=== PATIENT | female | born 1950 | race Hispanic/Latino ===

== ENCOUNTER → 2018-10-12 | Outpatient (CLI) | payer MEDICARE ==
[~2018-10-12] MED LIST: AEC81 PO; ATOR10 PO; B SUPPLEMENT PO; CANA300T PO; EXEN2VIA SQ; FLUT16H NASAL; GABA-529 PO; IRON150C5 PO; LEVO25TA4 PO; MAGN400T40 PO; MAGN500C15 PO; MECL12.585 PO; METF-446 PO; METO25 PO; NITR0.4T SL; PIOG15TA66 PO
== END | disposition home or self-care (01) ==
LOC: RAH 10:00
PROVIDERS: ATTEND Internal Medicine
DX: Z01.811 Encounter for preprocedural respiratory examination (principal); J44.9 Chronic obstructive pulmonary disease, unspecified; M85.88 Other specified disorders of bone density and structure, other site; Z95.1 Presence of aortocoronary bypass graft
CPT/HCPCS: 71046

== ENCOUNTER 2019-07-08 01:16 | Observation (INO) | payer MEDICARE ==
[~2019-07-08 01:16] MED LIST changes: +MECL-183 PO; -MECL12.585 PO
[2019-07-08 01:45] LABS: BASOPHILS % (AUTO) 0.7 % (0.0-5.0); EOSINOPHILS % (AUTO) 2.4 % (0.0-8.0); HEMATOCRIT 38.5 % (36-48); LYMPHOCYTES % (AUTO) 42.2 % (21.0-51.0); MEAN CORPUSCULAR HEMOGLOBIN 24.4 pg (27.0-33.0); MEAN CORPUSCULAR HGB CONC 30.1 g/dL (32.0-36.0); MEAN CORPUSCULAR VOLUME 80.9 fL (79-99); MONOCYTES % (AUTO) 9.4 % (3.0-13.0); NEUTROPHILS % (AUTO) 45.2 % (40.0-77.0); PLATELET COUNT (AUTO) 283 K/uL (130-400); RED BLOOD CELL COUNT(AUTO) 4.76 MIL/uL (4.00-5.50); RED CELL DISTRIBUTION WIDTH 17.5 % (11.0-15.5); WHITE BLOOD COUNT (AUTO) 7.2 K/uL (4.8-10.8)
[2019-07-08 01:53] LABS: CREATININE 0.8 mg/dL (0.5-1.5)
[2019-07-08 01:58] LABS: ALBUMIN 3.2 g/dL (3.5-5.0); BILIRUBIN,TOTAL 0.1 mg/dL (0.2-1.0); TOTAL PROTEIN, SERUM 6.2 g/dL (6.0-8.3)
[2019-07-08 02:35] LABS: APPEARANCE,URINE Clear (CLEAR); BILIRUBIN,URINE Negative (NEGATIVE); COLOR,URINE Yellow (YELLOW); GLUCOSE, URINE (UA) >=1000 mg/dL (NEGATIVE); KETONES,URINE Negative (NEGATIVE); LEUKOCYTE ESTERASE ,URINE Negative (NEGATIVE); NITRATE,URINE Negative (NEGATIVE); OCCULT BLOOD,URINE Negative (NEGATIVE); PROTEIN,URINE Negative (NEGATIVE); UROBILINOGEN,URINE 0.2 mg/dL (0.2-1.0)
[2019-07-08 02:48] LABS: BACTERIA,URINE Rare /HPF (None Seen); RBC,URINE 0-1 /HPF (0-1); SQUAMOUS EPITHELIAL CELL,UR 0-2 /HPF (0-2); WBC,URINE 0-1 /HPF (0-1)
[2019-07-08 02:49] LABS: MUCUS,URINE Rare LPF (None Seen)
[2019-07-08] MEDS ORDERED: ACETAMINOPHEN 325 MG TAB ONE (03:48)
[2019-07-08 03:53] LABS: PLATELET MORPHOLOGY PLT CLUMPS PRESENT
[2019-07-08] MEDS ORDERED: FAMOTIDINE/PF 20 MG/2 ML VIAL IV ONE (04:11)
[2019-07-08] MEDS ORDERED: ONDANSETRON HCL 4 MG/2 ML VIAL IV PRN (04:45)
[2019-07-08] MEDS ORDERED: DEXTROSE 50%-WATER 50 ML DISP.SYRIN IV PRN (05:00)
[2019-07-08] MEDS ORDERED: GLUCAGON 1MG KIT 1 MG ML IM PRN (05:00)
[2019-07-08 05:20] VITALS: BP 123/66
[2019-07-08] MEDS ORDERED: MONT10TA26 PO (05:42)
[2019-07-08] MEDS ORDERED: BENZ200C53 PO (05:53)
[2019-07-08] MEDS ORDERED: LEVO75 PO (05:53)
[2019-07-08] MEDS ORDERED: CELE400C10 PO (05:53)
[2019-07-08] MEDS ORDERED: TOPI25TA48 PO (05:53)
[2019-07-08] MEDS ORDERED: GABA-529 PO (05:53)
[2019-07-08] MEDS ORDERED: OMEP20CA12 PO (05:53)
[2019-07-08] MEDS ORDERED: DULO60CA64 PO (05:53)
[2019-07-08] MEDS ORDERED: FURO20TA4 PO (05:53)
[2019-07-08] MEDS ORDERED: LEVE500T19 PO (05:53)
[2019-07-08] MEDS: INSULIN HUMULIN R 100 UNIT/ML 3ML SQ SCH ×4 (06:00→20:42)
[2019-07-08 06:23] LABS: BASOPHILS % (AUTO) 0.6 % (0.0-5.0); EOSINOPHILS % (AUTO) 1.2 % (0.0-8.0); HEMATOCRIT 40.5 % (36-48); LYMPHOCYTES % (AUTO) 35.4 % (21.0-51.0); MEAN CORPUSCULAR HEMOGLOBIN 24.2 pg (27.0-33.0); MEAN CORPUSCULAR HGB CONC 29.9 g/dL (32.0-36.0); MEAN CORPUSCULAR VOLUME 80.8 fL (79-99); MONOCYTES % (AUTO) 7.1 % (3.0-13.0); NEUTROPHILS % (AUTO) 55.4 % (40.0-77.0); PLATELET COUNT (AUTO) 284 K/uL (130-400); RED BLOOD CELL COUNT(AUTO) 5.01 MIL/uL (4.00-5.50); RED CELL DISTRIBUTION WIDTH 17.7 % (11.0-15.5); WHITE BLOOD COUNT (AUTO) 6.8 K/uL (4.8-10.8)
[2019-07-08] MEDS: SODIUM CHLORIDE 0.9% 1000ML 1,000 ML IV SCH (06:39)
[2019-07-08 06:44] LABS: INR 0.95 (0.85-1.15); PARTIAL THROMBOPLASTIN TIME 24.7 SEC (26.3-35.5); PROTHROMBIN TIME 10.3 SEC (9.6-11.6)
[2019-07-08 06:58] LABS: ALANINE AMINOTRANSFERASE 27 U/L (12-78); ALBUMIN 3.1 g/dL (3.5-5.0); ASPARTATE AMINOTRANSFERASE 30 U/L (10-37); BILIRUBIN,TOTAL 0.1 mg/dL (0.2-1.0); CARBON DIOXIDE 30 mmol/L (21-32); CHLORIDE 107 mmol/L (101-111); CHOLESTEROL 128 mg/dL (<200); CREATINE KINASE, TOTAL 80 U/L (21-232); CREATININE 0.7 mg/dL (0.5-1.5); GLOMERULAR FILTR. RATE CALC 88 mL/min (>60); GLUCOSE,RANDOM 111 mg/dL (70-105); HDL CHOLESTEROL 49 mg/dL (35-85); LDL DIRECT 56 mg/dL (0-99); MYOGLOBIN 40 ng/mL (10-92); POTASSIUM 4.3 mmol/L (3.5-5.1); SODIUM SERUM 142 mmol/L (136-145); TOTAL PROTEIN, SERUM 6.6 g/dL (6.0-8.3); TRIGLYCERIDES 191 mg/dL (30-200); TROPONIN I < 0.04 ng/mL (0.00-0.06); UREA NITROGEN, BLOOD 9 mg/dL (7-18)
[2019-07-08 07:04] LABS: HEMOGLOBIN A1C 6.9 % (4.0-6.0)
[2019-07-08 07:30] VITALS: BP 106/51
[2019-07-08] MEDS: FAMOTIDINE/PF 20 MG/2 ML VIAL IV SCH ×2 (09:05→20:25)
[2019-07-08] MEDS: ASPIRIN 81MG TAB.CHEW PO SCH (09:06)
[2019-07-08] MEDS: ENOXAPARIN SODIUM 30 MG/0.3 ML SQ SCH (09:07)
--- NOTE | 2019-07-08 09:30 | NUR ---
DR. DE LA ROSA IN TO SE PT. ORDERS ENTERED.
--- NOTE | 2019-07-08 10:17 | NUR ---
INITIAL SW spoke with patient. She states she lives alone but goes to stay with sister, Dipti Law, [phone] when she needs extra help. No home services. Patient has assistant executive housekeeper which helps her around the house and with transportation. DME: BPM, glucometer (no insulin), cane, shower chair. Patient is able to complete ADL's independently but does not drive. PCP is Dr. Swapnil Ortega. Pharmacy is [facility] located in [place]. DCP is home. Addendum: 07/08/19 at 1019 by DARREL SORENSEN SS Amended: Links added.
--- NOTE | 2019-07-08 10:40 | NUR ---
DYSPHAGIA EVAL COMPLETED. NO S/S OF ASPIRATION. RECOMMEND REGULAR, THIN LIQUIDS, WITH PILLS WHOLE WITH LIQUIDS. QUALITY CONTROL TECH RAW MATERIALS COORDINATED WITH NURSE SINGER. Addendum: 07/08/[address] [facility]ARA PIRES Amended: Links added.
[2019-07-08 11:00] VITALS: BP 112/68
--- NOTE | 2019-07-08 15:08 | NUR ---
TO RAD DEPT NOW FOR BRAIN MRI .
[2019-07-08 16:00] VITALS: BP 113/69
[2019-07-08 20:00] VITALS: BP 121/64
[2019-07-08] MEDS: TOPIRAMATE 25 MG TABLET PO SCH (20:25)
[2019-07-08] MEDS: LEVETIRACETAM 500 MG TABLET PO SCH (20:25)
[2019-07-08] MEDS ORDERED: GABAPENTIN 300 MG CAPSULE PO SCH (21:00)
[2019-07-09] VITALS (7 sets, daily range): BP systolic 107–123; BP diastolic 55–75
[2019-07-09] MEDS: SODIUM CHLORIDE 0.9% 1000ML 1,000 ML IV SCH (04:01)
[2019-07-09] MEDS: INSULIN HUMULIN R 100 UNIT/ML 3ML SQ SCH ×2 (05:49→11:39)
[2019-07-09] MEDS ORDERED: GABAPENTIN 100 MG CAPSULE PO SCH (09:00)
[2019-07-09] MEDS: ASPIRIN 81MG TAB.CHEW PO SCH (09:11)
[2019-07-09] MEDS: ENOXAPARIN SODIUM 30 MG/0.3 ML SQ SCH (09:12)
[2019-07-09] MEDS: FAMOTIDINE/PF 20 MG/2 ML VIAL IV SCH (09:12)
[2019-07-09] MEDS: LEVETIRACETAM 500 MG TABLET PO SCH (09:12)
[2019-07-09] MEDS: TOPIRAMATE 25 MG TABLET PO SCH (09:12)
--- NOTE | 2019-07-09 09:30 | NUR ---
MD ROUNDS DR CHAPPELL VISITED WITH PATIENT. NO ORDERS RECEIVED. PATIENT STATED THAT DR CHAPPELL MENTIONED ABOUT CHANGING HER MEDICATIONS AND F/U WITH DR MIRANDA.
--- NOTE | 2019-07-09 11:42 | NUR ---
ROUNDS DR DE LA ROSA VISITED WITH PATIENT. FROM HIS STAND POINT PATIENT MAY BE D/C AND CONTINUE THE SAME SEIZURE MEDICATIONS, FOLLOW UP WITH HIM AT HIS CLINIC.
[2019-07-09] MEDS ORDERED: COMP1EAC MC (16:10)
[2019-07-09] MEDS ORDERED: FLUD0.1T2 PO (16:10)
[2019-07-09] MEDS ORDERED: FLUDROCORTISONE ACETATE 0.1 MG TABLET PO SCH (16:15)
== END 2019-07-09 19:25 | disposition home or self-care (01) ==
LOC: EDH 01:16 → EDHIP 04:45 → INTOOBSV 04:45 → 3DH 05:24
PROVIDERS: ADMIT Internal Medicine; ATTEND Internal Medicine
DX: R55 Syncope and collapse (principal); R41.82 Altered mental status, unspecified; E11.9 Type 2 diabetes mellitus without complications; E78.5 Hyperlipidemia, unspecified; I10 Essential (primary) hypertension; Z86.73 Personal history of transient ischemic attack (TIA), and cerebral infarction without residual deficits
CPT/HCPCS: 36415; 70450; 70544; 70551; 71045; 74177; 80053 ×2; 80061; 81001; 82550 ×2; 82948 ×7; 83036; 83690; 83874; 84484 ×2; 85025 ×2; 85610; 85730; 92610; 93005; 96361 ×2; 96372; 96374; 96375; 96376 ×2; 97161; 99285; G0378 ×21; G8978; G8979; G8980; G8981; G8982; G8983; J1650 ×2; J3490 ×4

== ENCOUNTER → 2019-07-28 | Outpatient (CLI) | payer MEDICARE ==
[~2019-07-28] MED LIST changes: -B SUPPLEMENT PO; +BENZ200C53 PO; +CELE400C10 PO; +COMP1EAC MC; +DULO60CA64 PO; -EXEN2VIA SQ; +FLUD0.1T2 PO; -FLUT16H NASAL; +FURO20TA4 PO; -IRON150C5 PO; +LEVE500T19 PO; -LEVO25TA4 PO; +LEVO75 PO; -MAGN400T40 PO; -METO25 PO; +MONT10TA26 PO; +OMEP20CA12 PO; +TOPI25TA48 PO
== END | disposition home or self-care (01) ==
LOC: RAH 08:26
PROVIDERS: ATTEND Internal Medicine Gastroenterology
DX: K76.0 Fatty (change of) liver, not elsewhere classified (principal); Z90.49 Acquired absence of other specified parts of digestive tract
CPT/HCPCS: 76700

== ENCOUNTER → 2020-02-21 | Outpatient (CLI) | payer MEDICARE | END | disposition home or self-care (01) | LOC: RAH 09:37 | PROVIDERS: ATTEND Internal Medicine | DX: K21.9 Gastro-esophageal reflux disease without esophagitis (principal); Z90.49 Acquired absence of other specified parts of digestive tract | CPT/HCPCS: 74240 ==

== ENCOUNTER → 2020-09-12 | Outpatient (CLI) | payer MEDICARE ==
[~2020-09-12] MED LIST changes: +IOHEXOL-350 75 ML VIAL IV ONE; -MECL-183 PO; +MECL-226 PO; -MONT10TA26 PO; +MONT10TA32 PO
== END | disposition home or self-care (01) ==
LOC: RAH 09:40
PROVIDERS: ATTEND Internal Medicine
DX: N85.8 Other specified noninflammatory disorders of uterus (principal); K76.0 Fatty (change of) liver, not elsewhere classified; D25.9 Leiomyoma of uterus, unspecified; K59.00 Constipation, unspecified; K57.92 Diverticulitis of intestine, part unspecified, without perforation or abscess without bleeding; K44.9 Diaphragmatic hernia without obstruction or gangrene; R56.9 Unspecified convulsions; H26.9 Unspecified cataract; Z90.49 Acquired absence of other specified parts of digestive tract
CPT/HCPCS: 74178; Q9967

== ENCOUNTER 2020-10-17 00:59 | Observation (INO) | payer MEDICARE ==
[~2020-10-17] VITALS: Ht 172.7 cm; Wt 80.4 kg
[2020-10-17] VITALS (9 sets, daily range): BP systolic 93–133; BP diastolic 43–61
[~2020-10-17 00:59] MED LIST changes: -IOHEXOL-350 75 ML VIAL IV ONE
[2020-10-17] MEDS ORDERED: MORPHINE 4 MG SYG ONE (01:56)
[2020-10-17] MEDS ORDERED: ONDANSETRON 4MG INJ ONE (01:56)
[2020-10-17] MEDS ORDERED: 0.9%NACL 1000ML 1,000 ML IV ONE ×2 (01:57→02:00)
[2020-10-17] MEDS ORDERED: MORPHINE 4 MG SYG IVP ONE (02:00)
[2020-10-17] MEDS ORDERED: ONDANSETRON 4MG INJ IVP ONE (02:00)
[2020-10-17 02:14] LABS: BASOPHILS % (AUTO) 0.5 % (0.0-5.0); EOSINOPHILS % (AUTO) 0.5 % (0.0-8.0); HEMATOCRIT 39.3 % (36-48); LYMPHOCYTES % (AUTO) 14.4 % (21.0-51.0); MEAN CORPUSCULAR HEMOGLOBIN 23.5 pg (27.0-33.0); MEAN CORPUSCULAR HGB CONC 29.8 g/dL (32.0-36.0); MEAN CORPUSCULAR VOLUME 79.1 fL (79-99); MONOCYTES % (AUTO) 4.3 % (3.0-13.0); NEUTROPHILS % (AUTO) 80.1 % (40.0-77.0); PLATELET COUNT (AUTO) 346 K/uL (130-400); RED BLOOD CELL COUNT(AUTO) 4.97 MIL/uL (4.00-5.50); RED CELL DISTRIBUTION WIDTH 19.4 % (11.0-15.5); WHITE BLOOD COUNT (AUTO) 8.6 K/uL (4.8-10.8)
[2020-10-17] MEDS ORDERED: IOHEXOL-350 75 ML VIAL IV ONE (02:24)
[2020-10-17 02:30] LABS: CREATININE 0.8 mg/dL (0.5-1.5); POTASSIUM 4.4 mmol/L (3.5-5.1)
[2020-10-17 02:37] LABS: ALBUMIN 3.6 g/dL (3.5-5.0); BILIRUBIN,TOTAL 0.2 mg/dL (0.2-1.0); TOTAL PROTEIN, SERUM 7.2 g/dL (6.0-8.3)
[2020-10-17 03:06] LABS: APPEARANCE,URINE Clear (CLEAR); BILIRUBIN,URINE Negative (NEGATIVE); COLOR,URINE Yellow (YELLOW); GLUCOSE, URINE (UA) >=1000 mg/dL (NEGATIVE); KETONES,URINE Negative (NEGATIVE); LEUKOCYTE ESTERASE ,URINE Negative (NEGATIVE); NITRATE,URINE Negative (NEGATIVE); OCCULT BLOOD,URINE Negative (NEGATIVE); PROTEIN,URINE Negative (NEGATIVE); UROBILINOGEN,URINE 0.2 mg/dL (0.2-1.0)
[2020-10-17 03:18] LABS: BACTERIA,URINE None Seen /HPF (None Seen); RBC,URINE None Seen /HPF (0-1); SQUAMOUS EPITHELIAL CELL,UR Rare /HPF (0-2); WBC,URINE None Seen /HPF (0-1); YEAST,URINE BUDDING None Seen /HPF (None Seen)
[2020-10-17] MEDS ORDERED: MORPHINE 2 MG SYG IV PRN (05:30)
[2020-10-17] MEDS ORDERED: MORPHINE 4 MG SYG IV PRN (05:30)
[2020-10-17] MEDS ORDERED: ONDANSETRON 4MG INJ IV PRN (05:30)
[2020-10-17] MEDS ORDERED: DEXL60CA3 PO (05:42)
[2020-10-17] MEDS ORDERED: SEMA1PEN3 SQ (05:55)
[2020-10-17] MEDS ORDERED: FLUT16H NASAL (05:55)
[2020-10-17] MEDS ORDERED: L.AC1CAP6 PO (05:55)
[2020-10-17] MEDS ORDERED: TURM500C9 PO (05:55)
[2020-10-17] MEDS ORDERED: ALBU0.63 IH (05:55)
[2020-10-17] MEDS ORDERED: PRAM0.122 PO (05:55)
[2020-10-17] MEDS ORDERED: EREN70AU2 SQ (05:55)
[2020-10-17] MEDS ORDERED: DIFL5DRO OP (05:58)
[2020-10-17] MEDS: LEVOFLOXACIN 500 MG/D5W 100 ML 100 ML IV SCH (06:00)
[2020-10-17] MEDS: METRONIDAZOLE 500MG/100ML BAG 100 ML IVPB SCH ×3 (06:00→21:33)
[2020-10-17] MEDS ORDERED: METRONIDAZOLE 500MG/100ML BAG 100 ML ONE (06:09)
[2020-10-17] MEDS ORDERED: LEVOFLOXACIN 500 MG/D5W 100 ML 100 ML ONE (06:09)
[2020-10-17] MEDS ORDERED: METFORMIN HCL 500 MG TABLET PO SCH (08:00)
[2020-10-17] MEDS ORDERED: PIOGLITAZONE 15MG TAB PO SCH (09:00)
[2020-10-17] MEDS: DIFLUPREDNATE OP SCH ×2 (09:00→21:00)
[2020-10-17] MEDS: **HM**(L.acidoph & Paracasei,B.lactis (Probiotic) 1 EACH PO SCH ×3 (09:00→21:00)
[2020-10-17] MEDS: DULOXETINE HCL 30 MG CAP PO SCH (10:28)
[2020-10-17] MEDS: FAMOTIDINE 20MG VIAL IV SCH ×2 (10:48→21:11)
[2020-10-17] MEDS: ENOXAPARIN SODIUM 40 MG/0.4 ML SYRINGE SQ SCH (10:49)
[2020-10-17] MEDS: PANTOPRAZOLE 40 MG TAB DR PO SCH (10:50)
[2020-10-17] MEDS: ASPIRIN 81 MG EC TAB PO SCH (10:50)
[2020-10-17] MEDS: MAGNESIUM OXIDE 400 MG TABLET PO SCH ×2 (10:50→21:11)
[2020-10-17] MEDS: LEVETIRACETAM 500 MG TABLET PO SCH ×2 (10:51→21:11)
[2020-10-17] MEDS: 0.9%NACL 1000ML 1,000 ML IV SCH ×2 (11:18→15:30)
[2020-10-17] MEDS ORDERED: ACETAMINOPHEN 325 MG TAB PO PRN ×2 (17:00)
[2020-10-17] MEDS: ACETAMINOPHEN 325 MG TAB PO PRN ×2 (17:23→22:35)
[2020-10-17] MEDS: ATORVASTATIN 40 MG TABLET PO SCH (21:11)
[2020-10-17] MEDS: PRAMIPEXOLE DI-HCL 0.25 MG TABLET PO SCH (21:15)
[2020-10-18] VITALS (7 sets, daily range): BP systolic 107–127; BP diastolic 44–71
[2020-10-18] MEDS: 0.9%NACL 1000ML 1,000 ML IV SCH ×3 (00:09→20:45)
[2020-10-18 05:40] LABS: BASOPHILS % (AUTO) 0.2 % (0.0-5.0); EOSINOPHILS % (AUTO) 0.3 % (0.0-8.0); HEMATOCRIT 34.8 % (36-48); LYMPHOCYTES % (AUTO) 23.6 % (21.0-51.0); MEAN CORPUSCULAR HEMOGLOBIN 23.2 pg (27.0-33.0); MEAN CORPUSCULAR HGB CONC 29.9 g/dL (32.0-36.0); MEAN CORPUSCULAR VOLUME 77.7 fL (79-99); MONOCYTES % (AUTO) 7.6 % (3.0-13.0); NEUTROPHILS % (AUTO) 67.9 % (40.0-77.0); PLATELET COUNT (AUTO) 293 K/uL (130-400); RED BLOOD CELL COUNT(AUTO) 4.48 MIL/uL (4.00-5.50); WHITE BLOOD COUNT (AUTO) 9.6 K/uL (4.8-10.8)
[2020-10-18] MEDS: METRONIDAZOLE 500MG/100ML BAG 100 ML IVPB SCH ×3 (05:41→20:57)
[2020-10-18 05:53] LABS: CREATININE 0.7 mg/dL (0.5-1.5); POTASSIUM 3.6 mmol/L (3.5-5.1)
[2020-10-18] MEDS: LEVOFLOXACIN 500 MG/D5W 100 ML 100 ML IV SCH (06:29)
[2020-10-18] MEDS ORDERED: INVOK100TB PO (08:56)
[2020-10-18] MEDS ORDERED: METF-446 PO (08:56)
[2020-10-18] MEDS ORDERED: LEVE500T19 PO (08:56)
[2020-10-18] MEDS ORDERED: FLUD0.1T2 PO ×2 (08:56)
[2020-10-18] MEDS ORDERED: DULO60CA64 PO (08:56)
[2020-10-18] MEDS ORDERED: CALC-1290 PO (08:56)
[2020-10-18] MEDS ORDERED: ATOR40TA71 PO (08:56)
[2020-10-18] MEDS ORDERED: EREN70AU2 SQ (08:56)
[2020-10-18] MEDS ORDERED: ASPI-1197 PO (08:56)
[2020-10-18] MEDS ORDERED: PIOG30TA70 PO (08:56)
[2020-10-18] MEDS: DIFLUPREDNATE OP SCH ×2 (09:00→20:09)
[2020-10-18] MEDS: **HM**(L.acidoph & Paracasei,B.lactis (Probiotic) 1 EACH PO SCH ×3 (09:00→20:09)
[2020-10-18] MEDS: FAMOTIDINE 20MG VIAL IV SCH ×2 (09:01→20:08)
[2020-10-18] MEDS: MAGNESIUM OXIDE 400 MG TABLET PO SCH ×2 (09:01→20:08)
[2020-10-18] MEDS: ASPIRIN 81 MG EC TAB PO SCH (09:02)
[2020-10-18] MEDS: PANTOPRAZOLE 40 MG TAB DR PO SCH (09:02)
[2020-10-18] MEDS: DULOXETINE HCL 30 MG CAP PO SCH (09:03)
[2020-10-18] MEDS: LEVETIRACETAM 500 MG TABLET PO SCH ×2 (09:03→20:08)
[2020-10-18] MEDS: ACETAMINOPHEN 325 MG TAB PO PRN (09:03)
[2020-10-18] MEDS: ENOXAPARIN SODIUM 40 MG/0.4 ML SYRINGE SQ SCH (09:04)
[2020-10-18 09:21] LABS: CREATINE KINASE, TOTAL 46 U/L (21-232); MYOGLOBIN 44 ng/mL (10-92); TROPONIN I < 0.04 ng/mL (0.00-0.06)
[2020-10-18 13:03] LABS: CREATINE KINASE, TOTAL 53 U/L (21-232); MYOGLOBIN 42 ng/mL (10-92); TROPONIN I < 0.04 ng/mL (0.00-0.06)
[2020-10-18] MEDS ORDERED: NITROGLYCERIN 0.4 MG SL TAB SL ONE (14:11)
[2020-10-18 14:51] LABS: CREATINE KINASE, TOTAL 51 U/L (21-232); MYOGLOBIN 44 ng/mL (10-92); TROPONIN I < 0.04 ng/mL (0.00-0.06)
[2020-10-18] MEDS ORDERED: IOHEXOL 350 MG/ML 100ML INFUS..BTL IV ONE (19:26)
[2020-10-18] MEDS: PRAMIPEXOLE DI-HCL 0.25 MG TABLET PO SCH (20:08)
[2020-10-18] MEDS: ATORVASTATIN 40 MG TABLET PO SCH (20:08)
[2020-10-19 04:00] VITALS: BP 107/54
[2020-10-19 04:17] LABS: BASOPHILS % (AUTO) 0.7 % (0.0-5.0); EOSINOPHILS % (AUTO) 1.2 % (0.0-8.0); HEMATOCRIT 35.5 % (36-48); LYMPHOCYTES % (AUTO) 46.2 % (21.0-51.0); MEAN CORPUSCULAR HEMOGLOBIN 23.3 pg (27.0-33.0); MEAN CORPUSCULAR HGB CONC 29.9 g/dL (32.0-36.0); MEAN CORPUSCULAR VOLUME 78.2 fL (79-99); MONOCYTES % (AUTO) 11.1 % (3.0-13.0); NEUTROPHILS % (AUTO) 40.5 % (40.0-77.0); PLATELET COUNT (AUTO) 288 K/uL (130-400); RED BLOOD CELL COUNT(AUTO) 4.54 MIL/uL (4.00-5.50); RED CELL DISTRIBUTION WIDTH 19.1 % (11.0-15.5)
[2020-10-19] MEDS: LEVOFLOXACIN 500 MG/D5W 100 ML 100 ML IV SCH (04:40)
[2020-10-19 04:49] LABS: HEMOGLOBIN A1C 6.4 % (4.0-6.0)
[2020-10-19 05:35] LABS: ERYTHROCYTE SEDIMENTATION RATE 2 MM/HR (0-30)
[2020-10-19] MEDS: METRONIDAZOLE 500MG/100ML BAG 100 ML IVPB SCH (05:43)
[2020-10-19 07:43] VITALS: BP 103/65
[2020-10-19] MEDS: DULOXETINE HCL 30 MG CAP PO SCH (08:53)
[2020-10-19] MEDS: LEVETIRACETAM 500 MG TABLET PO SCH (08:53)
[2020-10-19] MEDS: ASPIRIN 81 MG EC TAB PO SCH (08:53)
[2020-10-19] MEDS: PANTOPRAZOLE 40 MG TAB DR PO SCH (08:53)
[2020-10-19] MEDS: MAGNESIUM OXIDE 400 MG TABLET PO SCH (08:53)
[2020-10-19] MEDS: ENOXAPARIN SODIUM 40 MG/0.4 ML SYRINGE SQ SCH (08:54)
[2020-10-19] MEDS: FAMOTIDINE 20MG VIAL IV SCH (08:54)
[2020-10-19] MEDS ORDERED: METRONIDAZOLE 500 MG TABLET PO SCH ×2 (09:00)
[2020-10-19] MEDS ORDERED: LEVOFLOXACIN 500 MG TABLET PO SCH (09:00)
[2020-10-19] MEDS: **HM**(L.acidoph & Paracasei,B.lactis (Probiotic) 1 EACH PO SCH ×2 (09:03→14:12)
[2020-10-19] MEDS: DIFLUPREDNATE OP SCH (09:04)
[2020-10-19] MEDS ORDERED: EMPA10TA PO (11:14)
[2020-10-19 11:30] VITALS: BP 115/74
== END 2020-10-19 15:05 | disposition home or self-care (01) ==
LOC: EDH 00:59 → EDHIP 05:30 → 3BH 08:43
PROVIDERS: ADMIT Internal Medicine; ATTEND Internal Medicine
DX: K52.9 Noninfective gastroenteritis and colitis, unspecified (principal); G40.909 Epilepsy, unspecified, not intractable, without status epilepticus; I25.10 Atherosclerotic heart disease of native coronary artery without angina pectoris; I10 Essential (primary) hypertension; E11.9 Type 2 diabetes mellitus without complications; E78.5 Hyperlipidemia, unspecified; E78.00 Pure hypercholesterolemia, unspecified; Z86.73 Personal history of transient ischemic attack (TIA), and cerebral infarction without residual deficits; Z90.49 Acquired absence of other specified parts of digestive tract; Z95.1 Presence of aortocoronary bypass graft; Z79.899 Other long term (current) drug therapy; Z98.890 Other specified postprocedural states; Z79.82 Long term (current) use of aspirin; Z79.84 Long term (current) use of oral hypoglycemic drugs
CPT/HCPCS: 36415 ×3; 74174; 74177; 80048; 80053; 81001; 82150; 82550 ×3; 82948 ×9; 83036; 83605; 83690; 83874 ×3; 84145; 84484 ×3; 85025 ×3; 85651 ×2; 86140 ×2; 87040 ×2; 93005 ×3; 96361 ×4; 96365; 96366 ×3; 96367; 96372 ×3; 96375 ×2; 96376 ×3; 99285; G0378 ×56; J1650 ×3; J1956 ×3; J2270; J2405; J3490 ×12; J7030 ×3; Q9967 ×2

== ENCOUNTER → 2021-07-17 | Outpatient (CLI) | payer OTHER, MEDICARE ==
[~2021-07-17] MED LIST changes: -AEC81 PO; +ALBU0.63 IH; +ASPI-1197 PO; -ATOR10 PO; +ATOR40TA71 PO; -BENZ200C53 PO; +CALC-1290 PO; -CANA300T PO; -CELE400C10 PO; -COMP1EAC MC; +DEXL60CA3 PO; +DIFL5DRO OP; +EMPA10TA PO; +EREN70AU2 SQ; +FLUT16H NASAL; -FURO20TA4 PO; -GABA-529 PO; -LEVO75 PO; -MAGN500C15 PO; -MECL-226 PO; -METF-446 PO; -MONT10TA32 PO; -NITR0.4T SL; -OMEP20CA12 PO; -PIOG15TA66 PO; +PRAM0.122 PO; +REGADENOSON 0.4 MG/5 ML PF SYG IVP SCH; +SEMA1PEN3 SQ; -TOPI25TA48 PO; +TURM500C9 PO
== END | disposition home or self-care (01) ==
LOC: SHCH 08:06
PROVIDERS: ATTEND Internal Medicine Cardiovascular Disease
DX: R07.89 Other chest pain (principal); R06.02 Shortness of breath; Z95.1 Presence of aortocoronary bypass graft
CPT/HCPCS: 78452; 93017; 96374; A9500 ×2; J2785

== ENCOUNTER → 2021-12-25 | Outpatient (CLI) | payer OTHER, MEDICARE ==
[~2021-12-25] MED LIST changes: -REGADENOSON 0.4 MG/5 ML PF SYG IVP SCH
== END | disposition home or self-care (01) ==
LOC: RAH 07:10
PROVIDERS: ATTEND Internal Medicine
DX: R63.4 Abnormal weight loss (principal)
CPT/HCPCS: 78264; A9541

== ENCOUNTER → 2022-08-15 | Outpatient (CLI) | payer OTHER, MEDICARE | END | disposition home or self-care (01) | LOC: RAH 13:02 | PROVIDERS: ATTEND Clinical Nurse Specialist Family Health | DX: M47.812 Spondylosis without myelopathy or radiculopathy, cervical region (principal); M48.02 Spinal stenosis, cervical region | CPT/HCPCS: 72040 ==

== ENCOUNTER → 2023-03-21 | Outpatient (CLI) | payer OTHER, MEDICARE ==
[~2023-03-21] MED LIST changes: +REGADENOSON 0.4 MG/5 ML PF SYG IVP ONE
== END | disposition home or self-care (01) ==
LOC: SHCH 07:32
PROVIDERS: ATTEND Internal Medicine Cardiovascular Disease
DX: R07.9 Chest pain, unspecified (principal)
CPT/HCPCS: 78452; 96374; 93017; J2785; A9500 ×2

== ENCOUNTER → 2023-03-26 | Outpatient (CLI) | payer OTHER, MEDICARE ==
[~2023-03-26] MED LIST changes: -REGADENOSON 0.4 MG/5 ML PF SYG IVP ONE
== END | disposition home or self-care (01) ==
LOC: RAH 16:15
PROVIDERS: ATTEND Psychiatry & Neurology Neurology
DX: M19.011 Primary osteoarthritis, right shoulder (principal); M25.511 Pain in right shoulder; W19.XXXA Unspecified fall, initial encounter; Y93.89 Activity, other specified; Y92.89 Other specified places as the place of occurrence of the external cause; Y99.8 Other external cause status
CPT/HCPCS: 73030

== ENCOUNTER → 2023-04-04 | Outpatient (CLI) | payer OTHER, MEDICARE ==
[2023-04-04 13:09] LABS: BASOPHILS # (AUTO) 0.03 K/uL (0.00-0.20); BASOPHILS % (AUTO) 0.5 % (0.0-5.0); EOSINOPHILS # (AUTO) 0.05 K/uL (0.00-0.70); EOSINOPHILS % (AUTO) 0.9 % (0.0-8.0); HEMATOCRIT 38.7 % (36-48); IMMATURE GRANULOCYTE ABSOLUTE 0.02 K/uL (0-1); LYMPHOCYTES # (AUTO) 2.1 K/uL (1.0-4.8); LYMPHOCYTES % (AUTO) 35.6 % (21.0-51.0); MEAN CORPUSCULAR HEMOGLOBIN 21.4 pg (27.0-33.0); MEAN CORPUSCULAR HGB CONC 29.2 g/dL (32.0-36.0); MEAN CORPUSCULAR VOLUME 73.4 fL (79-99); MONOCYTES # (AUTO) 0.5 K/uL (0.1-1.0); MONOCYTES % (AUTO) 7.7 % (3.0-13.0); NEUTROPHILS # (AUTO) 3.2 K/uL (1.8-7.7); PLATELET COUNT (AUTO) 333 K/uL (130-400); RED BLOOD CELL COUNT(AUTO) 5.27 MIL/uL (4.00-5.50); RED CELL DISTRIBUTION WIDTH 20.8 % (11.0-15.5); WHITE BLOOD COUNT (AUTO) 5.8 K/uL (4.8-10.8)
[2023-04-04 13:15] LABS: CREATININE 0.7 mg/dL (0.5-1.5); POTASSIUM 3.8 mmol/L (3.5-5.1)
[2023-04-04 13:18] LABS: INR 0.97 (0.85-1.15); PROTHROMBIN TIME 11.3 SEC (9.6-11.6)
[2023-04-04 13:19] LABS: PARTIAL THROMBOPLASTIN TIME 26.9 SEC (26.3-35.5)
[2023-04-04 13:54] LABS: B-TYPE NATRIURETIC PEPTIDE 13 pg/mL (0-100)
[2023-04-04 14:39] LABS: ADD UA MICROSCOPIC YES; APPEARANCE,URINE CLEAR (CLEAR); BILIRUBIN,URINE NEGATIVE (NEGATIVE); COLOR,URINE LIGHT-YELLOW (YELLOW); GLUCOSE, URINE (UA) >=1000 mg/dL (NEGATIVE); KETONES,URINE NEGATIVE (NEGATIVE); LEUKOCYTE ESTERASE ,URINE NEGATIVE Leu/uL (NEGATIVE); NITRATE,URINE NEGATIVE (NEGATIVE); PROTEIN,URINE NEGATIVE (NEGATIVE); UROBILINOGEN,URINE 0.2 mg/dL (0.2-1.0)
[2023-04-04 14:41] LABS: BACTERIA,URINE RARE /HPF (None Seen); MUCUS,URINE RARE LPF (None Seen); SQUAMOUS EPITHELIAL CELL,UR RARE /HPF (0-2)
== END | disposition home or self-care (01) ==
LOC: RAH 11:57
PROVIDERS: ATTEND Internal Medicine
DX: Z01.818 Encounter for other preprocedural examination (principal); I25.118 Atherosclerotic heart disease of native coronary artery with other forms of angina pectoris; I25.119 Atherosclerotic heart disease of native coronary artery with unspecified angina pectoris; Z86.2 Personal history of diseases of the blood and blood-forming organs and certain disorders involving the immune mechanism; Z79.899 Other long term (current) drug therapy
CPT/HCPCS: 36415; 71046; 80048; 81001; 83880; 85025; 85610; 85730; 87088

== ENCOUNTER 2023-06-02 06:58 | Day surgery (SDC) | payer OTHER, MEDICARE ==
[2023-05-30 08:45] LABS: BASOPHILS # (AUTO) 0.04 K/uL (0.00-0.20); BASOPHILS % (AUTO) 0.7 % (0.0-5.0); EOSINOPHILS # (AUTO) 0.11 K/uL (0.00-0.70); HEMATOCRIT 35.3 % (36-48); IMMATURE GRANULOCYTE ABSOLUTE 0.01 K/uL (0-1); LYMPHOCYTES # (AUTO) 2.3 K/uL (1.0-4.8); LYMPHOCYTES % (AUTO) 41.3 % (21.0-51.0); MEAN CORPUSCULAR HEMOGLOBIN 20.8 pg (27.0-33.0); MEAN CORPUSCULAR HGB CONC 29.5 g/dL (32.0-36.0); MEAN CORPUSCULAR VOLUME 70.5 fL (79-99); MONOCYTES # (AUTO) 0.5 K/uL (0.1-1.0); MONOCYTES % (AUTO) 9.3 % (3.0-13.0); NEUTROPHILS # (AUTO) 2.6 K/uL (1.8-7.7); NEUTROPHILS % (AUTO) 46.5 % (40.0-77.0); PLATELET COUNT (AUTO) 377 K/uL (130-400); RED BLOOD CELL COUNT(AUTO) 5.01 MIL/uL (4.00-5.50); RED CELL DISTRIBUTION WIDTH 22.4 % (11.0-15.5); WHITE BLOOD COUNT (AUTO) 5.5 K/uL (4.8-10.8)
[2023-05-30 08:51] LABS: CREATININE 0.7 mg/dL (0.5-1.5); POTASSIUM 3.9 mmol/L (3.5-5.1)
[2023-05-30 08:54] LABS: INR 0.94 (0.85-1.15)
[2023-05-30 08:55] LABS: PARTIAL THROMBOPLASTIN TIME 26.1 SEC (26.3-35.5)
[2023-05-30 09:22] VITALS: BP 124/61; PULSE 72; RESP 17
[~2023-06-02] VITALS: Ht 170.2 cm; Wt 68.2 kg
[2023-06-02] VITALS (9 sets, daily range): BP systolic 101–133; BP diastolic 52–67; PULSE 61–72; RESP 14–18
[~2023-06-02 06:58] MED LIST changes: -ALBU0.63 IH; +ALBUHFA IH; +ATOR-2 PO; +ATOR40TA69 PO; -ATOR40TA71 PO; +BIOT10005 PO; +CAL PO; -CALC-1290 PO; +DICL100G60 TP; -DIFL5DRO OP; -DULO60CA64 PO; -EMPA10TA PO; -EREN70AU2 SQ; +ERGO500093 PO; +HYOS-27 SL; +INVOK100TB PO; +LEVO75TA4 PO; +LINA145C PO; +MAG PO; +MELA1TAB16 PO; +METF-527 PO; +MIDO5TAB4 PO; +MONT-39 PO; +PIOG30TA10 PO; +POT PO; +PROP10TA10 PO; +RIME75TA SL; -SEMA1PEN3 SQ; +SEMA2PEN SQ; +TOPI25TA48 PO; -TURM500C9 PO
[2023-06-02] MEDS ORDERED: LIDOCAINE HCL 400MG/20ML VIAL ONE (08:34)
[2023-06-02] MEDS ORDERED: MEPERIDINE-PF 25 MG/ML SYG ONE ×2 (08:35→09:10)
[2023-06-02] MEDS ORDERED: MIDAZOLAM HCL 1 MG/ML 2ML VIAL ONE ×2 (08:35→09:10)
[2023-06-02] MEDS: 0.9%NACL 1000ML 1,000 ML IV ONE (11:04)
== END 2023-06-02 13:20 | disposition home or self-care (01) ==
LOC: DAH 06:58
PROVIDERS: ATTEND Internal Medicine Cardiovascular Disease
DX: R55 Syncope and collapse (principal); I25.10 Atherosclerotic heart disease of native coronary artery without angina pectoris; E78.5 Hyperlipidemia, unspecified; E03.9 Hypothyroidism, unspecified; E11.319 Type 2 diabetes mellitus with unspecified diabetic retinopathy without macular edema; E66.9 Obesity, unspecified; Z79.01 Long term (current) use of anticoagulants; Z79.82 Long term (current) use of aspirin; Z79.890 Hormone replacement therapy; Z79.899 Other long term (current) drug therapy; Z98.890 Other specified postprocedural states; Z68.23 Body mass index [BMI] 23.0-23.9, adult
CPT/HCPCS: 80048; 85025; 85610; 85730; 36415; 93005; 93620; 82948 ×2; C1894 ×2; C1730 ×2; J3490; J7030; J2250 ×2; J2175 ×2; J1644; A4215; A4222; A4221; A4663; A4216; A4606; A4223 ×3; 99156; 99157

== ENCOUNTER → 2023-10-01 | Outpatient (CLI) | payer OTHER, MEDICARE ==
[2023-10-01 12:42] LABS: CREATININE 0.6 mg/dL (0.5-1.0); POTASSIUM 3.9 mmol/L (3.5-5.1)
== END | disposition home or self-care (01) ==
LOC: LAB 11:09
PROVIDERS: ATTEND Internal Medicine Cardiovascular Disease
DX: I95.1 Orthostatic hypotension (principal)
CPT/HCPCS: 36415; 80048; 83735; 83880

== ENCOUNTER → 2023-11-07 | Outpatient (CLI) | payer OTHER, MEDICARE | END | disposition home or self-care (01) | LOC: RAH 10:20 | PROVIDERS: ATTEND Internal Medicine | DX: Z12.31 Encounter for screening mammogram for malignant neoplasm of breast (principal); R92.323 Mammographic fibroglandular density, bilateral breasts | CPT/HCPCS: 77067 ==

== ENCOUNTER → 2023-11-07 | Outpatient (CLI) | payer OTHER, MEDICARE ==
[2023-11-07 10:44] LABS: BASOPHILS # (AUTO) 0.04 K/uL (0.00-0.20); BASOPHILS % (AUTO) 0.7 % (0.0-5.0); EOSINOPHILS # (AUTO) 0.09 K/uL (0.00-0.70); EOSINOPHILS % (AUTO) 1.5 % (0.0-8.0); HEMATOCRIT 38.1 % (36-48); IMMATURE GRANULOCYTE ABSOLUTE 0.02 K/uL (0-1); LYMPHOCYTES # (AUTO) 2.2 K/uL (1.0-4.8); LYMPHOCYTES % (AUTO) 36.4 % (21.0-51.0); MEAN CORPUSCULAR HEMOGLOBIN 22.1 pg (27.0-33.0); MEAN CORPUSCULAR HGB CONC 29.9 g/dL (32.0-36.0); MONOCYTES # (AUTO) 0.5 K/uL (0.1-1.0); MONOCYTES % (AUTO) 8.8 % (3.0-13.0); NEUTROPHILS # (AUTO) 3.2 K/uL (1.8-7.7); NEUTROPHILS % (AUTO) 52.3 % (40.0-77.0); PLATELET COUNT (AUTO) 370 K/uL (130-400); RED BLOOD CELL COUNT(AUTO) 5.15 MIL/uL (4.00-5.50); RED CELL DISTRIBUTION WIDTH 22.2 % (11.0-15.5)
[2023-11-07 11:21] LABS: % IRON SATURATION 4.9 % (22-44)
== END | disposition home or self-care (01) ==
LOC: LAB 10:19
PROVIDERS: ATTEND Internal Medicine
DX: D50.9 Iron deficiency anemia, unspecified (principal)
CPT/HCPCS: 36415; 82728; 83540; 83550; 85025

== ENCOUNTER 2024-02-27 22:16 | Emergency (ER) | payer OTHER, MEDICARE ==
[~2024-02-27] VITALS: Ht 172.7 cm; Wt 71.7 kg
[~2024-02-27 22:16] MED LIST changes: +HYOS-16 SL; -HYOS-27 SL
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
[2024-02-28 01:00] VITALS: BP 152/86; PULSE 74; RESP 16; TEMP 97.4; O2SAT 100
== END 2024-02-28 01:29 | disposition home or self-care (01) ==
LOC: EDH 22:16
DX: S22.080A Wedge compression fracture of T11-T12 vertebra, initial encounter for closed fracture (principal); E11.9 Type 2 diabetes mellitus without complications; E78.00 Pure hypercholesterolemia, unspecified; J45.909 Unspecified asthma, uncomplicated; Z79.82 Long term (current) use of aspirin; Z79.84 Long term (current) use of oral hypoglycemic drugs; Z79.85 Long-term (current) use of injectable non-insulin antidiabetic drugs; Z79.899 Other long term (current) drug therapy; Z88.0 Allergy status to penicillin; Z90.49 Acquired absence of other specified parts of digestive tract; Z95.1 Presence of aortocoronary bypass graft; V89.2XXA Person injured in unspecified motor-vehicle accident, traffic, initial encounter; Y93.89 Activity, other specified; Y92.488 Other paved roadways as the place of occurrence of the external cause; Y99.8 Other external cause status
CPT/HCPCS: 70450; 72125; 72128; 72131; 99284

== ENCOUNTER → 2024-04-06 | Outpatient (CLI) | payer OTHER, MEDICARE ==
[2024-04-06 12:29] LABS: CREATININE 0.7 mg/dL (0.5-1.0)
== END | disposition home or self-care (01) ==
LOC: LAB 11:28
PROVIDERS: ATTEND Neuromusculoskeletal Medicine & OMM
DX: S12.3 Fracture of fourth cervical vertebra (principal); X58.XXXS Exposure to other specified factors, sequela
CPT/HCPCS: 36415; 82565; 84520

== ENCOUNTER → 2024-04-09 | Outpatient (CLI) | payer OTHER, MEDICARE ==
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
== END | disposition home or self-care (01) ==
LOC: RAH 13:27
PROVIDERS: ATTEND Neuromusculoskeletal Medicine & OMM
DX: S33.140A Subluxation of L4/L5 lumbar vertebra, initial encounter (principal); M48.061 Spinal stenosis, lumbar region without neurogenic claudication; S22.080S Wedge compression fracture of T11-T12 vertebra, sequela; M48.07 Spinal stenosis, lumbosacral region; M47.896 Other spondylosis, lumbar region; M43.8X4 Other specified deforming dorsopathies, thoracic region; X58.XXXA Exposure to other specified factors, initial encounter; Y93.89 Activity, other specified; Y92.89 Other specified places as the place of occurrence of the external cause; Y99.8 Other external cause status
CPT/HCPCS: 72146; 72148

== ENCOUNTER → 2024-04-14 | Outpatient (CLI) | payer OTHER, MEDICARE ==
[~2024-04-14] MED LIST changes: +GADOTERATE MEGLUMINE 10 MMOL/20 ML VIAL IV ONE
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
== END | disposition home or self-care (01) ==
LOC: RAH 10:25
PROVIDERS: ATTEND Neuromusculoskeletal Medicine & OMM
DX: S12.391D Other nondisplaced fracture of fourth cervical vertebra, subsequent encounter for fracture with routine healing (principal); M48.02 Spinal stenosis, cervical region; M43.22 Fusion of spine, cervical region; M47.812 Spondylosis without myelopathy or radiculopathy, cervical region; X58.XXXD Exposure to other specified factors, subsequent encounter
CPT/HCPCS: 72156; A9575

== ENCOUNTER → 2025-01-18 | Outpatient (CLI) | payer OTHER, MEDICARE ==
[~2025-01-18] MED LIST changes: -GADOTERATE MEGLUMINE 10 MMOL/20 ML VIAL IV ONE; +TOPI-257 PO; -TOPI25TA48 PO
--- NOTE | 2025-01-18 19:11 | HMCIMG ---
EXAM: LUMBAR SPINE RADIOGRAPH, 3 VIEWS Technique: Anteroposterior, lateral, and coned-down lumbosacral views of the lumbar spine were obtained. No substantial technical limitations are identified. Clinical Information: Lumbar radiculopathy. Degenerative back pain. Comparison: None. Findings: Alignment: Normal lumbar lordosis is maintained. There is no spondylolisthesis. Vertebral bodies: Vertebral body heights are preserved without compression deformity or acute fracture. Intervertebral disc spaces: Disc height loss is present at L2???3, L4???5, and L5???S1. Endplates: Subchondral endplate sclerosis is present at levels with disc space narrowing. Osteophytes: Multilevel anterior and marginal osteophytes are present, compatible with degenerative change. Facet joints and posterior elements: Facet arthropathy is suspected at the lower lumbar levels on the lateral view. Sacroiliac joints and pelvis (limited field of view): No acute abnormality is identified on the included portions. Paraspinal soft tissues: No prevertebral soft tissue swelling is identified. Other: No radiopaque foreign body is identified. A small calcified uterine fibroid is seen. Impression: * Degenerative lumbar spondylosis with multilevel anterior and marginal osteophytes, disc height narrowing at L2???3, L4???5, and L5???S1, and endplate sclerosis???overall concordant with degenerative disease. * No acute osseous abnormality or malalignment identified. A small calcified uterine fibroid is seen. * Recommendation: Given the clinical history of radiculopathy, consider magnetic resonance imaging of the lumbar spine without intravenous contrast to evaluate for nerve root impingement, canal stenosis, and foraminal narrowing. Consider conservative management per clinical judgment; if mechanical instability is suspected, flexion???extension radiographs may be obtained. /[place]
== END | disposition home or self-care (01) ==
LOC: RAH 10:26
PROVIDERS: ATTEND Neuromusculoskeletal Medicine & OMM
DX: M47.26 Other spondylosis with radiculopathy, lumbar region (principal); M48.07 Spinal stenosis, lumbosacral region; M25.78 Osteophyte, vertebrae; M51.379 Other intervertebral disc degeneration, lumbosacral region without mention of lumbar back pain or lower extremity pain; D25.9 Leiomyoma of uterus, unspecified
CPT/HCPCS: 72100

== ENCOUNTER → 2025-01-28 | Outpatient (CLI) | payer OTHER, MEDICARE ==
[2025-01-28 09:03] LABS: CREATININE 0.7 mg/dL (0.5-1.0); GLOMERULAR FILTR. RATE CALC 90.0 mL/min (>90); UREA NITROGEN, BLOOD 20.0 mg/dL (7-18)
== END | disposition home or self-care (01) ==
LOC: LAB 08:05
PROVIDERS: ATTEND Internal Medicine
DX: R10.9 Unspecified abdominal pain (principal)
CPT/HCPCS: 36415; 82565; 84520

== ENCOUNTER → 2025-02-03 | Outpatient (CLI) | payer OTHER, MEDICARE ==
[~2025-02-03] MED LIST changes: +IOHEXOL-350 75 ML VIAL IV ONE
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
== END | disposition home or self-care (01) ==
LOC: RAH 08:04
PROVIDERS: ATTEND Internal Medicine
DX: S22.089A Unspecified fracture of T11-T12 vertebra, initial encounter for closed fracture (principal); R10.9 Unspecified abdominal pain; M41.86 Other forms of scoliosis, lumbar region; M43.16 Spondylolisthesis, lumbar region; I70.0 Atherosclerosis of aorta; D25.2 Subserosal leiomyoma of uterus; Z90.49 Acquired absence of other specified parts of digestive tract; X58.XXXA Exposure to other specified factors, initial encounter; Y93.89 Activity, other specified; Y92.89 Other specified places as the place of occurrence of the external cause; Y99.8 Other external cause status
CPT/HCPCS: 74178; Q9967

== ENCOUNTER → 2025-03-04 | Outpatient (CLI) | payer OTHER, MEDICARE ==
[2025-03-04 07:45] LABS: CREATININE 0.8 mg/dL (0.5-1.0); GLOMERULAR FILTR. RATE CALC 76.0 mL/min (>90); UREA NITROGEN, BLOOD 19.0 mg/dL (7-18)
== END | disposition home or self-care (01) ==
LOC: LAB 07:17
PROVIDERS: ATTEND Internal Medicine
DX: R10.9 Unspecified abdominal pain (principal)
CPT/HCPCS: 36415; 82565; 84520

== ENCOUNTER → 2025-03-09 | Outpatient (CLI) | payer OTHER, MEDICARE ==
[~2025-03-09] MED LIST changes: +GADOTERATE MEGLUMINE 10 MMOL/20 ML VIAL IV ONE; -IOHEXOL-350 75 ML VIAL IV ONE
--- NOTE | 2025-03-09 22:42 | HMCIMG ---
STUDY MR Abdomen without IV contrast / MRCP HISTORY Unspecified abdominal pain TECHNIQUE Multisequence, multiplanar MR imaging of the abdomen performed without intravenous contrast, including MRCP and multiphase dynamic sequences. COMPARISON None provided. FINDINGS Lower thorax No pleural effusion is identified. Median sternotomy sutures are noted. Liver The liver is enlarged, measuring up to 18.4 cm in craniocaudal dimension consistent with hepatomegaly. Diffuse hepatic steatosis is present without focal hepatic lesion. Gallbladder and bile ducts The gallbladder is surgically absent. The common bile duct is dilated, measuring up to 9.7 mm, with smooth tapering at the ampullary end. Central intrahepatic biliary radical dilatation is present, involving both right and left hepatic lobes. No intraductal filling defect is clearly demonstrated on the provided noncontrast sequences. Pancreas The pancreas is normal in size and contour without focal mass or main pancreatic duct dilatation. Spleen Spleen is normal in size and signal. Adrenals Adrenal glands are unremarkable. Kidneys Both kidneys are normal in size and morphology without hydronephrosis or focal renal mass. Stomach and bowel Limited evaluation of the visualized stomach and bowel loops shows no evidence of obstruction or acute inflammatory process. Lymph nodes No pathologically enlarged abdominal lymph nodes are identified. Vasculature No abdominal aortic aneurysm is seen. Major visualized abdominal vessels are patent. IMPRESSION * Hepatomegaly with diffuse hepatic steatosis. * Post-cholecystectomy state with dilated common bile duct measuring up to 9.7 mm and associated central intrahepatic biliary radical dilatation with smooth distal tapering at the ampullary region; correlate clinically and consider further evaluation for distal common bile duct obstruction if warranted. * No focal hepatic mass, pancreatic mass, or other acute intra-abdominal abnormality identified. /[place]
== END | disposition home or self-care (01) ==
LOC: RAH 07:18
PROVIDERS: ATTEND Internal Medicine
DX: K76.0 Fatty (change of) liver, not elsewhere classified (principal); R16.0 Hepatomegaly, not elsewhere classified; K83.8 Other specified diseases of biliary tract; R10.9 Unspecified abdominal pain; Z90.49 Acquired absence of other specified parts of digestive tract
CPT/HCPCS: 74183; A9575